=== PATIENT | female | born 1995 | race Caucasian/White ===

== ENCOUNTER 2016-09-24 23:52 | Emergency (ER) | payer OTHER ==
--- NOTE | 2016-09-25 01:06 | ED ---
Laceration/Wound HPI - HPI Summary HPI Summary: 21 F w/ left side facial laceration near left temporal region. She was hit with an elbow during basketball practice today. She denies any headache or LOC. She denies any blurry vision. She states that her tetanus is up to date. - History of Current Complaint Stated Complaint: LEFT EYE LAC Time Seen by Provider: 09/25/16 00:15 Pain Intensity: 4 - Allergy/Home Medications Allergies/Adverse Reactions: Allergies Allergy/AdvReac Type Severity Reaction Status Date / Time No Known Allergies Allergy Verified 09/24/16 23:58 PMH/Surg Hx/FS Hx/Imm Hx Endocrine/Hematology History: Denies: Hx Diabetes Cardiovascular History: Denies: Hx Hypertension Infectious Disease History: No Infectious Disease History: Denies: Traveled Outside the [place] in Last 30 Days - Family History Known Family History: Negative: Cardiac Disease - Social History Occupation: Student Alcohol Use: None Substance Use Type: Reports: None Smoking Status (MU): Never Smoked Tobacco Review of Systems Negative: Fever Negative: Chest Pain Negative: Shortness Of Breath Positive: Other - laceration left temporal region All Other Systems Reviewed And Are Negative: Yes Physical Exam Triage Information Reviewed: Yes Vital Signs On Initial Exam: Initial Vitals Temp Pulse Resp BP Pulse Ox 97.6 F 86 18 133/68 100 09/24/16 23:58 09/24/16 23:58 09/24/16 23:58 09/24/16 23:58 09/24/16 23:58 Vital Signs Reviewed: Yes Appearance: Positive: Well-Appearing Skin: Positive: Warm, Dry, Other - 2 cm by 1/2 cm wide and 1/2 cm depth without muscular involvement of left temporal region Head/Face: Positive: Normal Head/Face Inspection - with laceration present Eyes: Positive: Normal, Conjunctiva Clear ENT: Positive: Normal ENT inspection, Pharynx normal, TMs normal Respiratory/Lung Sounds: Positive: Clear to Auscultation, Breath Sounds Present Cardiovascular: Positive: Normal, RRR Procedures - Laceration/Wound Repair 1 Location: head Description: Linear Anesthesia: Local, 1.0% Length, Depth and Shape: 2 cm by 1/2 cm wide by 1/2 cm depth Irrigated w/ Saline (ccs): 200 Laceration/Wound Explored: clean Closure: Single Layer Suture Type: Prolene - 6-0 Number of Sutures: 3 Layer Closure?: No Sterile Dressing Applied?: No Diagnostics - Vital Signs Vital Signs Temp Pulse Resp BP Pulse Ox 09/24/16 23:58 97.6 F 86 18 133/68 100 - Laboratory Lab Statement: Any lab studies that have been ordered have been reviewed, and results considered in the medical decision making process. Laceration Repair Course/Dx - Course Course Of Treatment: 21 F presents with laceration of left side of face by elbow in basketball practice. tetanus up to date. had lengthy discussion with dad via phone about how was going to close laceration, advised that is too deep to use glue. had dr cade look at laceration and he agrees that a layered closer is not needed as dad advised. edges brought together well with 3 sutures , advised that could still scar depends on genetics and sunexposure and to return if any signs of infection, patient understands and agrees with plan - Differential Dx Differental Diagnoses: Abrasion, Avulsion, Laceration - Clinical Impression Provider Diagnoses: Laceration of face Discharge - Discharge Plan Condition: Good Disposition: HOME Patient Education Materials: Care For Your Stitches (ED) Referrals: [facility] JOHN Cortes [Primary Care Provider] - Additional Instructions: Keep area clean and dry, can apply neosporin to area Take Tylenol or ibuprofen for pain every 6 hours as needed Apply sunscreen to area once healed to reduce scar formation Return to ED or primary for suture removal in 5 days Return to ED if develop signs of infection such as fever, spreading redness, or pus formation or any new or worsening symptoms Images - Images Head: 1 - laceration
[2016-09-25 01:19] VITALS: BP 136/68
== END 2016-09-25 01:15 | disposition home or self-care (01) ==
LOC: ED 23:52
DX: S01.81XA Laceration without foreign body of other part of head, initial encounter (principal); X58.XXXA Exposure to other specified factors, initial encounter; Y93.9 Activity, unspecified; Y92.9 Unspecified place or not applicable; Y99.9 Unspecified external cause status
CPT/HCPCS: 12011; 99281